=== PATIENT | male | born 1980 | race Caucasian/White ===

== ENCOUNTER 2017-03-31 19:14 | Emergency (ER) | payer OTHER ==
[~2017-03-31] VITALS: Ht 190.5 cm; Wt 59.0 kg
[~2017-03-31 19:14] MED LIST: DILANTIN100 MG PO
[2017-03-31] MEDS ORDERED: ATIVAN1 MG PO (23:56)
== END 2017-04-01 00:35 | disposition home or self-care (01) ==
LOC: ED 19:14
DX: F10.239 Alcohol dependence with withdrawal, unspecified (principal); G40.909 Epilepsy, unspecified, not intractable, without status epilepticus; R00.0 Tachycardia, unspecified; F17.200 Nicotine dependence, unspecified, uncomplicated
CPT/HCPCS: 80053; 81001; 83690; 85025; 96365; 96375; 96376; 99284; G0480; J2060; J2405; J3411; J7030

== ENCOUNTER 2023-08-25 17:24 | Emergency (ER) | payer OTHER ==
[~2023-08-25] VITALS: Ht 190.5 cm; Wt 69.8 kg
[~2023-08-25 17:24] MED LIST changes: +ATIVAN1 MG PO
[2023-08-25 18:38] LABS: BASOPHILS 0.1 % (0-2); HEMATOCRIT 46.3 % (35.0-50.0); HEMOGLOBIN 15.5 g/dL (12.0-18.0); LYMPHOCYTES 2.8 % (24-44); MCH 32.5 (27-36); MCHC 33.5 g/dl (30-36); MCV 97.2 fl (81-99); MONOCYTES 9.2 % (0-12); NEUTROPHILS 87.9 % (39-80); PLATELET COUNT 229 K/uL (140-440); RBC 4.76 M/ul (4.3-5.7); RDW 12.9 (10.5-15.0)
[2023-08-25 19:03] LABS: ALBUMIN 4.1 g/dL (3.4-5.0); ALBUMIN/GLOBULIN RATIO 0.93 (1.1-2.4); ANION GAP 14.4 (7-21); BILIRUBIN, TOTAL 0.9 ng/dL (0.2-1.0); BUN/CREATININE RATIO 9.25 (6.0-28.6); CALCIUM 10.7 mg/dL (8.5-10.1); CREATININE, SERUM 1.08 mg/dL (0.70-1.30); MAGNESIUM 1.4 mg/dL (1.8-2.4); POTASSIUM 3.4 mmol/L (3.5-5.1); PROTEIN, TOTAL 8.5 g/dL (6.4-8.2)
[2023-08-25 21:08] LABS: BILIRUBIN, URINE NEGATIVE (negative); BLOOD/HGB, URINE NEGATIVE (Negative); KETONE, URINE SMALL (Negative); LEUK ESTERASE, URINE NEGATIVE (negative); NITRITE, URINE NEGATIVE (negative); PH, URINE 5.5 (5-7)
[2023-08-25 21:18] LABS: INFLUENZA B NAA NEGATIVE (NEGATIVE); RESPIRATORY SYNCYTIAL VIR NAA NEGATIVE (NEGATIVE)
[2023-08-25] MEDS ORDERED: CARAFATE1 GM PO (21:33)
[2023-08-25] MEDS ORDERED: PROMETHAZINE HC25 M1 PO (21:33)
[2023-08-25] MEDS ORDERED: PROTONIX20 MG PO (21:33)
[2023-08-25 21:44] LABS: AMPHETAMINES, URINE NEGATIVE (NEGATIVE); BARBITURATES, URINE NEGATIVE (NEGATIVE); BENZODIAZEPINE, URINE NEGATIVE (NEGATIVE); BUPRENORPHINE, URINE NEGATIVE (NEGATIVE); CANNABINOID, URINE POSITIVE (NEGATIVE); COCAINE, URINE NEGATIVE (NEGATIVE); ECSTASY, URINE NEGATIVE (NEGATIVE); FENTANYL, URINE NEGATIVE (NEGATIVE); METHADONE, URINE NEGATIVE (NEGATIVE); OPIATES, URINE POSITIVE (NEGATIVE); OXYCODONE, URINE NEGATIVE (NEGATIVE); PHENCYCLIDINE, URINE NEGATIVE (NEGATIVE)
[2023-08-25 22:08] VITALS: BP 126/79
== END 2023-08-25 22:10 | disposition home or self-care (01) ==
LOC: ED 17:24
PROVIDERS: Emergency Medicine; Family Medicine
DX: R11.15 Cyclical vomiting syndrome unrelated to migraine (principal); K21.9 Gastro-esophageal reflux disease without esophagitis; F17.200 Nicotine dependence, unspecified, uncomplicated; Z11.52 Encounter for screening for COVID-19; Z79.899 Other long term (current) drug therapy
CPT/HCPCS: 36415; 74177; 80053; 80307; 81003; 83690; 83735; 84484; 85025; 87502; 96375; 99284-25; A9270; C9113; J1170; J1790; J2270; J3475; Q9967; U0002

== ENCOUNTER 2023-09-05 11:26 | Emergency (ER) | payer OTHER ==
[~2023-09-05] VITALS: Ht 190.5 cm; Wt 70.0 kg
[~2023-09-05 11:26] MED LIST changes: +CARAFATE1 GM PO; +PROMETHAZINE HC25 M1 PO; +PROTONIX20 MG PO
--- OUTSIDE RECORDS SUMMARY | 2023-09-05 11:29 | XMS ---
PreManage Notification: SAJI MORALES Security Grants Administrator Events No recent Security Events currently on file CRITERIA MET - [facility] - 2 Visits in 30 Days CARE PROVIDERS -[facility]- Dentist: Cold Header [facility] PHONE: [phone] Lila has no Care Guidelines for this patient. EKaz VISIT COUNT (12 MO.) 2 [facility] TOTAL 2 NOTE: Visits indicate total known visits. ED/UCC VISIT TRACKING (12 MO.) 09/05/2023 11:[address] [facility] [place] TYPE: Emergency COMPLAINT: - SOB, FEVER, DIZZINESS 08/25/2023 17:[address] [facility] [place] TYPE: Emergency COMPLAINT: - COLD SYMPTOMS DIAGNOSES: - Cyclical vomiting syndrome unrelated to migraine - Encounter for screening for COVID-19 - Gastro-esophageal reflux disease without esophagitis - Nicotine dependence, unspecified, uncomplicated - Other director long term care (current) drug therapy - Vomiting, unspecified INPATIENT VISIT TRACKING (12 MO.) No inpatient visits to display in this time frame [id number]
[2023-09-05] MEDS ORDERED: KEPPRA500 MG (11:41)
[2023-09-05 11:57] LABS: BASOPHILS 0.1 % (0-2); EOSINOPHILS 0.3 % (0-6); HEMATOCRIT 39.7 % (35.0-50.0); MCH 32.2 (27-36); MCHC 35.3 g/dl (30-36); MCV 91.3 fl (81-99); MONOCYTES 1.9 % (0-12); NEUTROPHILS 90.7 % (39-80); PLATELET COUNT 333 K/uL (140-440); RBC 4.35 M/ul (4.3-5.7); RDW 13.7 (10.5-15.0)
[2023-09-05 12:11] LABS: ALBUMIN 1.9 g/dL (3.4-5.0); ALBUMIN/GLOBULIN RATIO 0.35 (1.1-2.4); ANION GAP 10.1 (7-21); BILIRUBIN, TOTAL 3.7 ng/dL (0.2-1.0); BUN/CREATININE RATIO 10.75 (6.0-28.6); CREATININE, SERUM 0.93 mg/dL (0.70-1.30); POTASSIUM 3.1 mmol/L (3.5-5.1); PROTEIN, TOTAL 7.4 g/dL (6.4-8.2)
[2023-09-05 12:21] LABS: LACTIC ACID, BLOOD 2.9 mmol/L (0.4-2.0)
[2023-09-05 12:35] LABS: INFLUENZA B NAA NEGATIVE (NEGATIVE); RESPIRATORY SYNCYTIAL VIR NAA NEGATIVE (NEGATIVE)
[2023-09-05 14:28] LABS: BILIRUBIN, URINE POSITIVE (negative); BLOOD/HGB, URINE NEGATIVE (Negative); KETONE, URINE NEGATIVE (Negative); LEUK ESTERASE, URINE NEGATIVE (negative); NITRITE, URINE NEGATIVE (negative); PH, URINE 7.5 (5-7)
[2023-09-05 20:07] VITALS: BP 120/74
== END 2023-09-05 20:09 | disposition short-term general hospital (02) ==
LOC: ED 11:26
PROVIDERS: Emergency Medicine
DX: J18.9 Pneumonia, unspecified organism (principal); J90 Pleural effusion, not elsewhere classified; K21.9 Gastro-esophageal reflux disease without esophagitis; G40.909 Epilepsy, unspecified, not intractable, without status epilepticus; F17.200 Nicotine dependence, unspecified, uncomplicated; Z79.899 Other long term (current) drug therapy
CPT/HCPCS: 36415; 71045; 71260; 80053; 81003; 83605; 85025; 85060; 87040; 87502; 96361; 96366; 96367; 96375; 99285-25; J0692; J1170; J3370; J7060; J7121; Q9967; U0002

== ENCOUNTER 2023-12-17 08:01 | Emergency (ER) | payer OTHER ==
[~2023-12-17] VITALS: Ht 190.5 cm; Wt 72.0 kg
--- OUTSIDE RECORDS SUMMARY | ~2023-12-17 | XMS | Continuity of Care Document ---
Demographics + + + | Address | [address] | | | [place] [address] | + + + | Preferred Language | Unknown | + + + | Marital Status | Unknown | + + + | Scientology Affiliation | Unknown | + + + | Race | White | + + + | Ethnic Group | Not or | + + + Author + + + | Author | [facility] | + + + | Organization | [facility] | + + + | Address | [address] | | | [place] [address] | + + + | Phone | | + + + Care Team Providers + + + + | Care Computer Numerical Control Operator Name | Role | Phone | + [...]
[~2023-12-17 08:01] MED LIST changes: +KEPPRA500 MG
[2023-12-17] MEDS ORDERED: ONDANSETRON 4 MG TAB ODT SL ONE (08:45)
[2023-12-17 09:13] LABS: BASOPHILS 0.8 % (0-2); EOSINOPHILS 0.9 % (0-6); HEMATOCRIT 48.1 % (35.0-50.0); HEMOGLOBIN 16.5 g/dL (12.0-18.0); LYMPHOCYTES 23.9 % (24-44); MCH 32.6 (27-36); MCHC 34.3 g/dl (30-36); MCV 94.9 fl (81-99); MONOCYTES 8.1 % (0-12); NEUTROPHILS 66.3 % (39-80); PLATELET COUNT 208 K/uL (140-440); RBC 5.07 M/ul (4.3-5.7); RDW 13.3 (10.5-15.0)
[2023-12-17 09:27] LABS: ALBUMIN 4.7 g/dL (3.4-5.0); ALBUMIN/GLOBULIN RATIO 1.09 (1.1-2.4); ANION GAP 17.5 (7-21); BILIRUBIN, TOTAL 0.7 ng/dL (0.2-1.0); BUN/CREATININE RATIO 3.96 (6.0-28.6); CREATININE, SERUM 1.01 mg/dL (0.70-1.30); POTASSIUM 3.5 mmol/L (3.5-5.1)
[2023-12-17] MEDS ORDERED: ondansetron HCL 4 MG/2 ML VIAL IV ONE (10:30)
[2023-12-17] MEDS ORDERED: ONDANSETRON ODT4 MG PO (11:49)
[2023-12-17] MEDS ORDERED: DIFLUCAN200 MG PO (11:56)
[2023-12-17 12:09] VITALS: BP 128/77
== END 2023-12-17 12:04 | disposition home or self-care (01) ==
LOC: ED 08:01
PROVIDERS: Emergency Medicine
DX: R11.2 Nausea with vomiting, unspecified (principal); B35.4 Tinea corporis; F17.200 Nicotine dependence, unspecified, uncomplicated; Z79.899 Other long term (current) drug therapy
CPT/HCPCS: 36415; 71046; 80053; 83690; 85025; A9270; G0480; J2405

== ENCOUNTER 2023-12-20 07:10 | Emergency (ER) | payer OTHER ==
[~2023-12-20] VITALS: Ht 188 cm; Wt 71.4 kg
--- OUTSIDE RECORDS SUMMARY | ~2023-12-20 | XMS | Continuity of Care Document ---
Demographics + + + | Address | [address] | | | [place] [address] | + + + | Preferred Language | Unknown | + + + | Marital Status | Unknown | + + + | Uatsdin Affiliation | Unknown | + + + | Race | White | + + + | Ethnic Group | Not or | + + + Author + + + | Author | [facility] | + + + | Organization | [facility] | + + + | Address | [address] | | | [place] [address] | + + + | Phone | | + + + Care Team Providers + + + + | Care Telephone Sterilizer Name | Role | Phone | + + + + Unavailable | Unavailable | + + + + Allergies No information. Encounters No information. Functional Status No information. Immunizations No information. Medications No information. Problems + + + + | date | description | facility | + + + + | 2023-10-02 14:11:37 | Sepsis, unspecified | [facility] | | | organism | | + + + + | 2023-10-02 14:11:37 | Gangrene and necrosis of | [facility] | | | lung | | + + + + | 2023-10-02 14:11:37 | Pyothorax without fistula | [facility] | + + + + | 2023-10-02 14:11:37 | Acute respiratory failure | [facility] | | | with hypoxia | | + + + + | 2023-10-02 14:11:37 | Severe sepsis without | [facility] | | | septic shock | | + + + + | 2023-10-02 14:38:26 | Sepsis, unspecified | [facility] | | | organism | | + + + + | 2023-10-02 14:38:26 | Gangrene and necrosis of | [facility] | | | lung | | + + + + | 2023-10-02 14:38:26 | Pyothorax without fistula | [facility] | + + + + | 2023-10-02 14:38:26 | Acute respiratory failure | [facility] | | | with hypoxia | | + + + + | 2023-10-02 14:38:26 | Severe sepsis without | [facility] | | | septic shock | | + + + + Procedures No information. Results/Labs No information. Social History +--------+ + + | date | description | facility | +--------+ + + Vital Signs No information."
[~2023-12-20 07:10] MED LIST changes: +DIFLUCAN200 MG PO; +ONDANSETRON ODT4 MG PO
--- OUTSIDE RECORDS SUMMARY | 2023-12-20 07:12 | XMS ---
PreManage Notification: SAJI MORALES Security Supervisor Train Operations Events No recent Security Events currently on file CRITERIA MET - 6 ED Visits in 6 Months - [facility] - 2 Visits in 30 Days CARE PROVIDERS -Chivo- Dentist: Investment Broker [facility] PHONE: [phone] FLORENCIO OSULLIVAN Internal Medicine: Infectious Disease [facility] PHONE: [phone] Lila has no Care Guidelines for this patient. Jimmy VISIT COUNT (12 MO.) [address] [place] [address] TOTAL 6 NOTE: Visits indicate total known visits. ED/UCC VISIT TRACKING (12 MO.) 12/20/2023 07:11 [facility] [place] TYPE: Emergency COMPLAINT: - VOMTING 12/17/2023 08:02 [facility] [place] TYPE: Emergency COMPLAINT: - FEVER, VOMITING, SKIN ISSUE DIAGNOSES: - Nausea with vomiting, unspecified - Nicotine dependence, unspecified, uncomplicated - Other intermission coordinator (current) drug therapy - Tinea corporis - Vomiting, unspecified 11/14/2023 14:03 [facility] [place] [facility] [place]: Emergency COMPLAINT: - FACIAL WOUND 10/29/2023 10:14 [facility] [place] TYPE: Emergency COMPLAINT: - WEAKNESS DIAGNOSES: - Abscess of lung with pneumonia - Gastro-esophageal reflux disease without esophagitis - Nicotine dependence, unspecified, uncomplicated - Other fatigue - Other custodial (current) drug therapy - Weakness 09/05/2023 11:27 [facility] [place] TYPE: Emergency COMPLAINT: - SOB, FEVER, DIZZINESS DIAGNOSES: - Epilepsy, unspecified, not intractable, without status epilepticus - Gastro-esophageal reflux disease without esophagitis - Nicotine dependence, unspecified, uncomplicated - Other custodial (current) drug therapy - Pleural effusion, not elsewhere classified - Pneumonia, unspecified organism - Shortness of breath 08/25/2023 17:25 [facility] [place] TYPE: Emergency COMPLAINT: - COLD SYMPTOMS DIAGNOSES: - Cyclical vomiting syndrome unrelated to migraine - Encounter for screening for COVID-19 - Gastro-esophageal reflux disease without esophagitis - Nicotine dependence, unspecified, uncomplicated - Other custodial (current) drug therapy - Vomiting, unspecified INPATIENT VISIT TRACKING (12 MO.) 09/05/2023 23:28 [facility] TYPE: General Medicine COMPLAINT: - Pneumonia DIAGNOSES: - Acute respiratory failure with hypoxia - Gangrene and necrosis of lung - Pleural effusion, not elsewhere classified - Pneumonia, unspecified organism - Pyothorax without fistula - Sepsis, unspecified organism - Severe sepsis without septic shock [id number]
[2023-12-20] MEDS ORDERED: LORazepam 2 MG/ML VIAL IV PRN (07:30)
[2023-12-20] MEDS ORDERED: SODIUM CHLORIDE 0.9% 1,000 ML IV ONE (07:30)
[2023-12-20] MEDS ORDERED: PANTOPRAZOLE SODIUM 40 MG/10 ML VIAL IV ONE (07:30)
[2023-12-20] MEDS ORDERED: ondansetron HCL 4 MG/2 ML VIAL IV ONE (07:30)
[2023-12-20 08:01] LABS: BASOPHILS 0.3 % (0-2); EOSINOPHILS 0.1 % (0-6); HEMATOCRIT 49.4 % (35.0-50.0); HEMOGLOBIN 16.7 g/dL (12.0-18.0); MCH 32.2 (27-36); MCHC 33.7 g/dl (30-36); MCV 95.6 fl (81-99); MONOCYTES 3.8 % (0-12); NEUTROPHILS 87.8 % (39-80); PLATELET COUNT 194 K/uL (140-440); RBC 5.17 M/ul (4.3-5.7); RDW 13.3 (10.5-15.0)
[2023-12-20] MEDS ORDERED: MULTIVITAMINS 10 ML,FOLIC ACID 1 MG,THIAMINE HCL 100 MG in SODIUM CHLORIDE 0.9% 1,000 ML IV SCH (08:15)
[2023-12-20 08:21] LABS: ALBUMIN 4.8 g/dL (3.4-5.0); ALBUMIN/GLOBULIN RATIO 1.07 (1.1-2.4); ANION GAP 18.8 (7-21); BILIRUBIN, TOTAL 0.5 ng/dL (0.2-1.0); BUN/CREATININE RATIO 7.14 (6.0-28.6); CALCIUM 10.2 mg/dL (8.5-10.1); CREATININE, SERUM 0.98 mg/dL (0.70-1.30); POTASSIUM 3.8 mmol/L (3.5-5.1); PROTEIN, TOTAL 9.3 g/dL (6.4-8.2)
[2023-12-20] MEDS ORDERED: FOLIC ACID 1 MG/0.2 ML ML ONE (08:21)
[2023-12-20] MEDS ORDERED: PROMETHAZINE HC25 M1 PO (08:54)
[2023-12-20] MEDS ORDERED: CHLORDIAZEPOXID25 MG PO (08:54)
[2023-12-20] MEDS ORDERED: OMEPRAZOLE20 MG PO (08:54)
[2023-12-20] MEDS ORDERED: ONDANSETRON ODT8 MG PO (09:06)
[2023-12-20 11:08] VITALS: BP 111/73
== END 2023-12-20 11:08 | disposition home or self-care (01) ==
LOC: ED 07:10
PROVIDERS: Emergency Medicine
DX: K29.20 Alcoholic gastritis without bleeding (principal); F17.200 Nicotine dependence, unspecified, uncomplicated; Z79.899 Other long term (current) drug therapy
CPT/HCPCS: 36415; 80053; 83690; 85025; 96361; 96365; 96366; 96375; 96376; 99284-25; C9113; G0480; J2060; J2405; J3411; J7030

== ENCOUNTER 2025-03-22 16:53 | Emergency (ER) | payer OTHER ==
[~2025-03-22] VITALS: Ht 188 cm; Wt 71.8 kg
[~2025-03-22 16:53] MED LIST changes: +CHLORDIAZEPOXID25 MG PO; +OMEPRAZOLE20 MG PO; +ONDANSETRON ODT8 MG PO
--- OUTSIDE RECORDS SUMMARY | 2025-03-22 17:00 | XMS ---
PreManage Notification: SAJI MORALES Security Box Printer Events No recent Security Events currently on file CRITERIA MET - Group Notification CARE PROVIDERS -, [facility] Dentist: Build Master Current [place] PHONE: [phone] Lila has no Care Guidelines for this patient. EKaz VISIT COUNT (12 MO.) 2 [facility] TOTAL 2 NOTE: Visits indicate total known visits. ED/UCC VISIT TRACKING (12 MO.) 03/22/2025 16:54 [facility] [place] TYPE: Emergency COMPLAINT: - VOMITING 10/31/2024 14:39 [facility] [place] TYPE: Emergency COMPLAINT: - SEIZURE LIKE FEELING INPATIENT VISIT TRACKING (12 MO.) No inpatient visits to display in this time frame [id number]
[2025-03-22] MEDS ORDERED: SODIUM CHLORIDE 0.9% 500 ML IV ONE (20:15)
[2025-03-22 20:17] LABS: BASOPHILS 0.3 % (0.2-1.2); EOSINOPHILS 0 % (0.8-7.0); LYMPHOCYTES 6.8 % (21.8-53.1); MCH 32.6 PG (25.7-32.2); MCHC 33.4 g/dL (32.3-36.5); MCV 97.6 fL (79.0-92.2); MONOCYTES 6.9 % (5.3-12.2); NEUTROPHILS 85.7 % (34.0-67.9); RBC 4.66 M/uL (4.63-6.08)
[2025-03-22 20:32] LABS: ALT (SGPT) 226.0 U/L (14-59); AST (SGOT) 224.0 U/L (15-37); GLOMERULAR FILTRATION RATE,EST 79.0 mL/min (>60); PROTEIN, TOTAL 9.6 g/dL (6.4-8.2); UREA NITROGEN 10.0 mg/dL (7-18)
[2025-03-22] MEDS ORDERED: LORazepam 2 MG/ML VIAL IV ONE (21:30)
[2025-03-22] MEDS ORDERED: LACTATED RINGER'S 1,000 ML IV ONE (21:30)
[2025-03-22] MEDS ORDERED: FAMOTIDINE 20 MG/ 2 ML VIAL IV ONE (21:30)
[2025-03-22 21:39] LABS: ALCOHOL, MEDICAL <3 ng/dL (<3)
[2025-03-22 21:46] LABS: BLOOD/HGB, URINE NEGATIVE (Negative); KETONE, URINE >=80 (Negative); LEUK ESTERASE, URINE NEGATIVE (negative); NITRITE, URINE NEGATIVE (negative)
[2025-03-22 21:51] LABS: EPITHELIAL CELLS, URINE SQUAMOUS 1+ /lpf (0-1+)
[2025-03-22 21:53] LABS: CRYSTALS, URINE NONE SEEN (0-1+)
[2025-03-22 21:54] LABS: BACTERIA, URINE RARE /hpf (negative); CASTS, URINE NONE SEEN \\lpf; REFLEX CULTURE, URINE No (No)
[2025-03-22 22:01] LABS: AMPHETAMINES, URINE NEGATIVE (NEGATIVE); BARBITURATES, URINE NEGATIVE (NEGATIVE); BENZODIAZEPINE, URINE NEGATIVE (NEGATIVE); CANNABINOID, URINE POSITIVE (NEGATIVE); COCAINE, URINE NEGATIVE (NEGATIVE); ECSTASY, URINE NEGATIVE (NEGATIVE); FENTANYL, URINE NEGATIVE (NEGATIVE); METHADONE, URINE NEGATIVE (NEGATIVE); OPIATES, URINE NEGATIVE (NEGATIVE); OXYCODONE, URINE NEGATIVE (NEGATIVE); PHENCYCLIDINE, URINE NEGATIVE (NEGATIVE)
[2025-03-23] MEDS ORDERED: CHLORDIAZEPOXIDE 25 MG CAP PO ONE (01:00)
[2025-03-23] MEDS ORDERED: CHLORDIAZEPOXID25 MG PO (01:13)
[2025-03-23] MEDS ORDERED: ONDANSETRON ODT4 MG PO (01:16)
[2025-03-23 01:28] VITALS: BP 130/79
== END 2025-03-23 01:31 | disposition home or self-care (01) ==
LOC: ED 16:53
PROVIDERS: Internal Medicine
DX: F10.90 Alcohol use, unspecified, uncomplicated (principal); K21.9 Gastro-esophageal reflux disease without esophagitis; F17.200 Nicotine dependence, unspecified, uncomplicated; Z79.899 Other long term (current) drug therapy
CPT/HCPCS: 36415; 71045; 80053; 80307; 81001; 83690; 83735; 85025; 96361; 96374; 96375; 96376; 99284-25; G0480; J2060; J2405; J7040; J7121

== ENCOUNTER 2025-05-06 11:39 | Emergency (ER) | payer OTHER ==
[~2025-05-06] VITALS: Ht 188 cm; Wt 72.4 kg
--- OUTSIDE RECORDS SUMMARY | 2025-05-06 11:45 | XMS ---
PreManage Notification: SAJI MORALES Security Structural Steel Equipment Erector Events No recent Security Events currently on file CRITERIA MET - Group Notification CARE PROVIDERS -, [facility] Dentist: Creative Guru Current [place] PHONE: [phone] Lila has no Care Guidelines for this patient. EKaz VISIT COUNT (12 MO.) 3 [facility] TOTAL 3 NOTE: Visits indicate total known visits. ED/UCC VISIT TRACKING (12 MO.) 05/06/2025 11:39 [facility] [place] TYPE: Emergency COMPLAINT: - VOMITING 03/22/2025 16:54 [facility] [place] TYPE: Emergency COMPLAINT: - VOMITING DIAGNOSES: - Alcohol use, unspecified, uncomplicated - Gastro-esophageal reflux disease without esophagitis - Nausea with vomiting, unspecified - Nicotine dependence, unspecified, uncomplicated - Other mcc (current) drug therapy 10/31/2024 14:39 [facility] [place] TYPE: Emergency COMPLAINT: - SEIZURE LIKE FEELING INPATIENT VISIT TRACKING (12 MO.) No inpatient visits to display in this time frame [id number]
[2025-05-06] MEDS ORDERED: SODIUM CHLORIDE 0.9% 1,000 ML IV ONE (13:00)
[2025-05-06] MEDS ORDERED: LORazepam 2 MG/ML VIAL IV ONE (13:30)
[2025-05-06 14:30] LABS: BASOPHILS 0.2 % (0.2-1.2); EOSINOPHILS 0.2 % (0.8-7.0); LYMPHOCYTES 13.3 % (21.8-53.1); MCH 32.8 PG (25.7-32.2); MCHC 34.5 g/dL (32.3-36.5); MCV 95.1 fL (79.0-92.2); MONOCYTES 8.7 % (5.3-12.2); NEUTROPHILS 77.4 % (34.0-67.9); RBC 4.51 M/uL (4.63-6.08)
[2025-05-06 14:43] LABS: ALT (SGPT) 69.0 U/L (14-59); AST (SGOT) 79.0 U/L (15-37); GLOMERULAR FILTRATION RATE,EST 106.0 mL/min (>60); PROTEIN, TOTAL 8.8 g/dL (6.4-8.2); UREA NITROGEN 4.0 mg/dL (7-18)
[2025-05-06] MEDS ORDERED: LORazepam 1 MG TAB PO ONE (15:45)
[2025-05-06] MEDS ORDERED: ONDANSETRON 4 MG HOME.PACK SL ONE (15:45)
[2025-05-06 15:52] VITALS: BP 126/90
== END 2025-05-06 16:00 | disposition home or self-care (01) ==
LOC: ED 11:39
PROVIDERS: Emergency Medicine
DX: F10.239 Alcohol dependence with withdrawal, unspecified (principal); K29.20 Alcoholic gastritis without bleeding; K21.9 Gastro-esophageal reflux disease without esophagitis; F17.200 Nicotine dependence, unspecified, uncomplicated; Z79.899 Other long term (current) drug therapy
CPT/HCPCS: 36415; 80053; 83690; 85025; 96361; 96374; 96375; 99284-25; A9270; A9270-GY; J2060; J2405; J7030

== ENCOUNTER 2025-05-30 22:30 | Emergency (ER) | payer OTHER ==
[~2025-05-30] VITALS: Ht 188 cm; Wt 68.0 kg
--- OUTSIDE RECORDS SUMMARY | 2025-05-30 22:33 | XMS ---
PreManage Notification: SAJI MORALES Security Nuclear Medicine Physician Events No recent Security Events currently on file CRITERIA MET - Group Notification - [facility] - 2 Visits in 30 Days CARE PROVIDERS -, [facility] Dentist: Photo Studio Assistant Current [employer] PHONE: [phone] [facility]: Multi-Specialty Current FAMILY PHONE: Unknown Lila has no Care Guidelines for this patient. E.DAshley VISIT COUNT (12 MO.) [address] [place] [address] TOTAL 4 NOTE: Visits indicate total known visits. ED/UCC VISIT TRACKING (12 MO.) 05/30/2025 22:[address] [facility] [facility] [place] TYPE: Emergency COMPLAINT: - DIFFICULTY BREATHING 05/06/2025 11:39 [facility] [place] TYPE: Emergency COMPLAINT: - VOMITING DIAGNOSES: - Alcohol dependence with withdrawal, unspecified - Alcoholic gastritis without bleeding - Gastro-esophageal reflux disease without esophagitis - Nausea with vomiting, unspecified - Nicotine dependence, unspecified, uncomplicated - Other skilled nursing (current) drug therapy 03/22/2025 16:54 [facility] [place] TYPE: Emergency COMPLAINT: - VOMITING DIAGNOSES: - Alcohol use, unspecified, uncomplicated - Gastro-esophageal reflux disease without esophagitis - Nausea with vomiting, unspecified - Nicotine dependence, unspecified, uncomplicated - Other skilled nursing (current) drug therapy 10/31/2024 14:39 [facility] [place] TYPE: Emergency COMPLAINT: - SEIZURE LIKE FEELING INPATIENT VISIT TRACKING (12 MO.) No inpatient visits to display in this time frame [id number]
[2025-05-30] MEDS ORDERED: THIAMINE HCL 200 MG/2 ML VIAL IV ONE (22:45)
[2025-05-30] MEDS ORDERED: SODIUM CHLORIDE 0.9% 1,000 ML IV ONE (22:45)
[2025-05-30] MEDS ORDERED: ALBUTEROL/IPRATROPIUM 3 ML NEB ONE (22:46)
[2025-05-30 22:56] LABS: BASOPHILS 0.6 % (0.2-1.2); EOSINOPHILS 0.1 % (0.8-7.0); LYMPHOCYTES 15.8 % (21.8-53.1); MCH 34.0 PG (25.7-32.2); MCHC 33.9 g/dL (32.3-36.5); MCV 100.2 fL (79.0-92.2); MONOCYTES 5.3 % (5.3-12.2); NEUTROPHILS 78.1 % (34.0-67.9); RBC 4.24 M/uL (4.63-6.08)
[2025-05-30] MEDS ORDERED: ALBUTEROL/IPRATROPIUM 3 ML NEB INH ONE (23:00)
[2025-05-30] MEDS ORDERED: FAMOTIDINE 20 MG/ 2 ML VIAL IV ONE (23:00)
[2025-05-30] MEDS ORDERED: LORazepam 2 MG/ML VIAL IV ONE (23:00)
[2025-05-30 23:17] LABS: ALT (SGPT) 100.0 U/L (14-59); AST (SGOT) 113.0 U/L (15-37); GLOMERULAR FILTRATION RATE,EST 113.0 mL/min (>60); PROTEIN, TOTAL 8.6 g/dL (6.4-8.2); UREA NITROGEN 5.0 mg/dL (7-18)
[2025-05-30 23:22] LABS: INR 0.94 (0.80-1.30); PROTIME 12.2 Sec (11.2-14.2)
[2025-05-30 23:37] LABS: LACTIC ACID, BLOOD 5.0 mmol/L (0.4-2.0)
[2025-05-30] MEDS ORDERED: PANTOPRAZOLE SODIUM 40 MG/10 ML VIAL IV ONE (23:45)
[2025-05-30] MEDS ORDERED: LACTATED RINGER'S 1,000 ML IV ONE (23:45)
[2025-05-31 02:16] LABS: GLOMERULAR FILTRATION RATE,EST 120.0 mL/min (>60); UREA NITROGEN 4.0 mg/dL (7-18)
[2025-05-31 02:28] LABS: BLOOD/HGB, URINE NEGATIVE (Negative); KETONE, URINE SMALL (Negative); LEUK ESTERASE, URINE NEGATIVE (negative); NITRITE, URINE NEGATIVE (negative)
[2025-05-31 02:41] LABS: BACTERIA, URINE RARE /hpf (negative); CASTS, URINE HYALINE 3+ \\lpf; CRYSTALS, URINE NONE SEEN (0-1+); EPITHELIAL CELLS, URINE NONE SEEN /lpf (0-1+); REFLEX CULTURE, URINE No (No)
[2025-05-31 02:42] LABS: AMPHETAMINES, URINE NEGATIVE (NEGATIVE); BARBITURATES, URINE NEGATIVE (NEGATIVE); BENZODIAZEPINE, URINE POSITIVE (NEGATIVE); CANNABINOID, URINE POSITIVE (NEGATIVE); COCAINE, URINE NEGATIVE (NEGATIVE); ECSTASY, URINE NEGATIVE (NEGATIVE); FENTANYL, URINE NEGATIVE (NEGATIVE); METHADONE, URINE NEGATIVE (NEGATIVE); OPIATES, URINE NEGATIVE (NEGATIVE); OXYCODONE, URINE NEGATIVE (NEGATIVE); PHENCYCLIDINE, URINE NEGATIVE (NEGATIVE)
[2025-05-31] MEDS ORDERED: LACTATED RINGER'S 1,000 ML IV ONE ×2 (03:00→03:15)
[2025-05-31 06:42] LABS: LACTIC ACID, BLOOD 2.1 mmol/L (0.4-2.0)
[2025-05-31 08:21] VITALS: BP 102/51
--- NOTE | 2025-06-02 07:37 | EKG ---
[facility] [address] [place], [place] [address] Signed Sinus tachycardia Otherwise normal ECG When compared with ECG of 29-OCT-2023 11:06, No significant change was found Confirmed by Luke Rivero DO ([id number]) on 06/02/2025 7:36:49 AM Electronically Signed By: LUKE RIVERO DO 06/02/25 0737 PATIENT NAME: SAJI MORALES ALEX Electrocardiogram DATE OF : 82 PHYSICIAN: LUKE RIVERO DO REPORT #: [id number] REPORT IS CONFIDENTIAL AND NOT TO BE RELEASED WITHOUT AUTHORIZATION
--- NOTE | 2025-06-07 21:32 | EKG ---
[facility] [address] [place], [place] [address] Signed Sinus tachycardia Minimal voltage criteria for LVH, may be normal variant ( Sokolow-Dixon ) Borderline ECG When compared with ECG of 30-MAY-2025 22:54, No significant change was found Confirmed by Fred Ngo MD () on 06/07/2025 9:32:11 PM Electronically Signed By: FRED NGO MD 06/07/25 2132 PATIENT NAME: NIEVESNEYDASAJI ALEX Electrocardiogram DATE OF : 82 PHYSICIAN: FRED NGO MD REPORT #: [id number] REPORT IS CONFIDENTIAL AND NOT TO BE RELEASED WITHOUT AUTHORIZATION
== END 2025-05-31 08:15 | disposition home or self-care (01) ==
LOC: ED 22:30
PROVIDERS: Internal Medicine
DX: E87.29 Other acidosis (principal); E86.0 Dehydration; F17.200 Nicotine dependence, unspecified, uncomplicated
CPT/HCPCS: 36415; 71045; 71260; 80048; 80053; 80307; 81001; 83605; 83690; 83880; 85025; 85379; 85610; 85730; 87040; 87077; 87186; 93005; 93010; 94640; 96361; 96365; 96375; 99285; G0480; J0696; J2060; J2405; J2470; J3411; J7030; J7121; Q9967

== ENCOUNTER 2025-06-06 08:28 | Emergency (ER) | payer OTHER ==
[~2025-06-06] VITALS: Ht 188 cm; Wt 69.0 kg
--- OUTSIDE RECORDS SUMMARY | 2025-06-06 08:29 | XMS ---
PreManage Notification: SAJI MORALES Security Tagman Events No recent Security Events currently on file CRITERIA MET - Group Notification - [facility] - 2 Visits in 30 Days CARE PROVIDERS -, [facility] Dentist: Principal System Software Engineer Current [place] PHONE: [phone] [facility]: Multi-Specialty Current FAMILY PHONE: Unknown Lila has no Care Guidelines for this patient. E.DAshley VISIT COUNT (12 MO.) [address] [place] [address] TOTAL 5 NOTE: Visits indicate total known visits. ED/UCC VISIT TRACKING (12 MO.) 06/06/2025 08:28 [facility] [place] TYPE: Emergency COMPLAINT: - CHEST PAIN 05/30/2025 22:31 [facility] [place] TYPE: Emergency COMPLAINT: - DIFFICULTY BREATHING DIAGNOSES: - Dehydration - Nicotine dependence, unspecified, uncomplicated - Other acidosis - Pleurodynia 05/06/2025 11:39 [facility] [place] TYPE: Emergency COMPLAINT: - VOMITING DIAGNOSES: - Alcohol dependence with withdrawal, unspecified - Alcoholic gastritis without bleeding - Gastro-esophageal reflux disease without esophagitis - Nausea with vomiting, unspecified - Nicotine dependence, unspecified, uncomplicated - Other intermodal owner operator truck driver (current) drug therapy 03/22/2025 16:54 [facility] [place] TYPE: Emergency COMPLAINT: - VOMITING DIAGNOSES: - Alcohol use, unspecified, uncomplicated - Gastro-esophageal reflux disease without esophagitis - Nausea with vomiting, unspecified - Nicotine dependence, unspecified, uncomplicated - Other intermodal owner operator truck driver (current) drug therapy 10/31/2024 14:39 [facility] [place] TYPE: Emergency COMPLAINT: - SEIZURE LIKE FEELING INPATIENT VISIT TRACKING (12 MO.) No inpatient visits to display in this time frame [email or web address]
[2025-06-06] MEDS ORDERED: ASPIRIN 81 MG CHEW PO ONE (08:45)
[2025-06-06] MEDS ORDERED: SODIUM CHLORIDE 0.9% 1,000 ML IV PRN (09:00)
[2025-06-06] MEDS ORDERED: FAMOTIDINE 20 MG/ 2 ML VIAL IV ONE (09:00)
[2025-06-06 09:01] LABS: BASOPHILS 0.8 % (0.2-1.2); EOSINOPHILS 1.0 % (0.8-7.0); LYMPHOCYTES 26.7 % (21.8-53.1); MCH 33.9 PG (25.7-32.2); MCHC 33.9 g/dL (32.3-36.5); MCV 100.0 fL (79.0-92.2); MONOCYTES 11.1 % (5.3-12.2); NEUTROPHILS 60.1 % (34.0-67.9); RBC 3.92 M/uL (4.63-6.08)
[2025-06-06 09:20] LABS: ALT (SGPT) 206 U/L (14-59); AST (SGOT) 251 U/L (15-37); GLOMERULAR FILTRATION RATE,EST 111 mL/min (>60); PROTEIN, TOTAL 7.8 g/dL (6.4-8.2); UREA NITROGEN 8 mg/dL (7-18)
[2025-06-06] MEDS ORDERED: PEPCID20 MG PO (10:01)
[2025-06-06] MEDS ORDERED: ONDANSETRON ODT4 MG PO (10:01)
[2025-06-06 10:15] VITALS: BP 116/84
== END 2025-06-06 10:12 | disposition home or self-care (01) ==
LOC: ED 08:28
PROVIDERS: Emergency Medicine
DX: K29.20 Alcoholic gastritis without bleeding (principal); K21.9 Gastro-esophageal reflux disease without esophagitis; F17.200 Nicotine dependence, unspecified, uncomplicated; Z79.899 Other long term (current) drug therapy
CPT/HCPCS: 36415; 71045; 80053; 83735; 84484; 85025; 93005; 93010; 96361; 96374; 96375; 99284-25; J2405; J7030

== ENCOUNTER 2025-06-06 19:20 | Emergency (ER) | payer OTHER ==
[~2025-06-06] VITALS: Ht 188 cm; Wt 69.0 kg
[~2025-06-06 19:20] MED LIST changes: +PEPCID20 MG PO
--- OUTSIDE RECORDS SUMMARY | 2025-06-06 19:23 | XMS ---
PreManage Notification: SAJI MORALES Security Cellar Worker Events No recent Security Events currently on file CRITERIA MET - Group Notification - [facility] - 2 Visits in 30 Days CARE PROVIDERS -, [facility] Dentist: Medical Transcription Editor Current [employer] PHONE: [phone] [facility]: Multi-Specialty Current FAMILY PHONE: Unknown Lila has no Care Guidelines for this patient. E.DAshley VISIT COUNT (12 MO.) [address] [facility] TOTAL 6 NOTE: Visits indicate total known visits. ED/UCC VISIT TRACKING (12 MO.) 06/06/2025 19:20 [facility] [place] TYPE: Emergency COMPLAINT: - DIFFICULTY BREATHING 06/06/2025 08:28 [facility] [place] TYPE: Emergency COMPLAINT: - CHEST PAIN 05/30/2025 22:31 [facility] [place] TYPE: Emergency COMPLAINT: - DIFFICULTY BREATHING DIAGNOSES: - Dehydration - Nicotine dependence, unspecified, uncomplicated - Other acidosis - Pleurodynia 05/06/2025 11:39 [facility] [place] TYPE: Emergency COMPLAINT: - VOMITING DIAGNOSES: - Alcohol dependence with withdrawal, unspecified - Alcoholic gastritis without bleeding - Gastro-esophageal reflux disease without esophagitis - Nausea with vomiting, unspecified - Nicotine dependence, unspecified, uncomplicated - Other termite treater helper (current) drug therapy 03/22/2025 16:54 [facility] [...] visits to display in this time frame [id number]
[2025-06-06] MEDS ORDERED: ALBUTEROL/IPRATROPIUM 3 ML NEB INH ONE (20:00)
[2025-06-06 20:48] LABS: CORONAVIRUS COVID-19 AG NEGATIVE (NEGATIVE)
[2025-06-06] MEDS ORDERED: hydrOXYzine pamoate 50 MG HOME.PACK PO ONE (21:30)
[2025-06-06] MEDS ORDERED: ALBUTEROL SULFATE 8 GM HOME.PACK INH ONE (21:30)
[2025-06-06 21:52] VITALS: BP 127/64
== END 2025-06-06 21:54 | disposition home or self-care (01) ==
LOC: ED 19:20
PROVIDERS: Family Medicine
DX: J06.9 Acute upper respiratory infection, unspecified (principal); F17.200 Nicotine dependence, unspecified, uncomplicated; K21.9 Gastro-esophageal reflux disease without esophagitis
CPT/HCPCS: 36415; 94640; 99283

== ENCOUNTER 2025-06-24 05:43 | Emergency (ER) | payer OTHER ==
[~2025-06-24] VITALS: Ht 188 cm; Wt 90.0 kg
--- OUTSIDE RECORDS SUMMARY | ~2025-06-24 | XMS | Continuity of Care Document ---
Demographics + + + | Address | [address] | | | [place] [address] | + + + | Preferred Language | Unknown | + + + | Marital Status | Never | + + + | Rastafari Affiliation | Unknown | + + + | Race | White | + + + | Ethnic Group | Not or | + + + Author + + + | Author | [facility] | + + + | Organization | [facility] | + + + | Address | [address] | | | [place] [address] | + + + | Phone | | + + + Care Team Providers + + + + | [employer] Service Supervisor Name | Role | Phone | + + + + Unavailable | Unavailable | + + + + Unavailable | Unavailable | + + + + Allergies No information. Encounters No information. Functional Status No information. Immunizations No information. Medications + + + + | date | description | facility | + + + + | 2025-06-06 00:00 | FAMOTIDINE | [facility] | | | | [facility] | + + + + | 2025-06-06 00:00 | ONDANSETRON | [facility] | | | | [facility] | + + + + | (no date) | LEVETIRACETAM | [facility] | | | | [facility] | + + + + Problems + + + + | date | description | facility | + + + + | 2025-05-06 00:00 | Alcohol withdrawal | [facility] | | | syndrome | [facility] | + + + + | 2025-05-31 00:00 | Dehydration | [facility] | | | | [facility] | + + + + | 2025-05-31 00:00 | Alcoholic ketoacidosis | [facility] | | | | [facility] | + + + + | 2025-06-06 00:00 | Upper respiratory tract | [facility] | | | infection | [facility] | + + + + Procedures [...] 0.81 | (missing) | (missing) | | [facility] | 22:47:08 | [facility] | | [...] 72 | (missing) | (missing) | | [facility] | 22:47:08 | [facility] | | | [...] 95 | (missing) | (missing) | | [facility] | 08:58:08 | [facility] | | | [...] 13.3 | (missing) | (missing) | | [facility] | 08:58:08 | [facility] | | [...]
--- OUTSIDE RECORDS SUMMARY | 2025-06-24 05:44 | XMS ---
PreManage Notification: SAJI MORALES Security Desk Operator Events No recent Security Events currently on file CRITERIA MET - 6 ED Visits in 6 Months - Group Notification - [facility] - 2 Visits in 30 Days CARE PROVIDERS -, [facility] Dentist: Ignition Mechanic Current [place] PHONE: [phone] [facility]: Multi-Specialty Current FAMILY PHONE: Unknown Lila has no Care Guidelines for this patient. EKaz VISIT COUNT (12 MO.) [address] [place] [address] TOTAL 7 NOTE: Visits indicate total known visits. ED/UCC VISIT TRACKING (12 MO.) 06/24/2025 05:43 [facility] [place] TYPE: Emergency COMPLAINT: - NOSE BLEED 06/06/2025 19:20 [facility] [place] TYPE: Emergency COMPLAINT: - DIFFICULTY BREATHING DIAGNOSES: - Acute upper respiratory infection, unspecified - Allergic urticaria - Cough, unspecified - Gastro-esophageal reflux disease without esophagitis - Nicotine dependence, unspecified, uncomplicated 06/06/2025 08:[address] [facility] 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 [place] [facility] [place] TYPE: Emergency COMPLAINT: - DIFFICULTY BREATHING DIAGNOSES: - Dehydration - Nicotine dependence, unspecified, uncomplicated - Other acidosis - Pleurodynia 05/06/2025 11:[address] 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 [place] TYPE: Emergency COMPLAINT: - VOMITING DIAGNOSES: - Alcohol use, unspecified, uncomplicated - Gastro-esophageal reflux disease without esophagitis - Nausea with vomiting, unspecified - Nicotine dependence, unspecified, uncomplicated - Other marine oil terminal superintendent (current) drug therapy 10/31/2024 14:39 [facility] [place] TYPE: Emergency COMPLAINT: - SEIZURE LIKE FEELING INPATIENT VISIT TRACKING (12 MO.) No inpatient visits to display in this time frame [id number]
[2025-06-24] MEDS ORDERED: OXYMETAZOLINE HCL 30 ML BTL ONE (05:50)
[2025-06-24] MEDS ORDERED: AFRIN15 M1 NAS (05:55)
[2025-06-24 06:00] VITALS: BP 124/79
[2025-06-24] MEDS ORDERED: OXYMETAZOLINE HCL 30 ML BTL NAS ONE (06:00)
[2025-06-24] MEDS ORDERED: KEPPRA500 MG PO (22:47)
== END 2025-06-24 06:00 | disposition home or self-care (01) ==
LOC: ED 05:43
DX: R04.0 Epistaxis (principal); K21.9 Gastro-esophageal reflux disease without esophagitis; F17.200 Nicotine dependence, unspecified, uncomplicated; Z79.899 Other long term (current) drug therapy
CPT/HCPCS: 99283

== ENCOUNTER 2025-06-24 18:51 | Emergency (ER) | payer OTHER ==
[~2025-06-24] VITALS: Ht 188 cm; Wt 68.0 kg
--- OUTSIDE RECORDS SUMMARY | ~2025-06-24 | XMS | Continuity of Care Document ---
Demographics + + + | Address | [address] | | | [place] [address] | + + + | Preferred Language | Unknown | + + + | Marital Status | Never | + + + | Worship Affiliation | Unknown | + + + | Race | White | + + + | Ethnic Group | Not or | + + + Author + + + | Author | [facility] | + + + | Organization | [facility] | + + + | Address | [address] | | | [place] [address] | + + + | Phone | | + + + Care Team Providers + + + + | Care Weed Control Inspector Name | Role | Phone | + + + + Unavailable | Unavailable | + + + + Unavailable | Unavailable | + + + + Allergies No information. Encounters No information. Functional Status No information. Immunizations No information. Medications + + + + | date | description | facility | + + + + | 2025-06-06 00:00 | FAMOTIDINE | [facility] | | | | [facility] | + + + + | 2025-06-06 00:00 | ONDANSETRON | [facility] | | | | [facility] | + + + + | (no date) | LEVETIRACETAM | [facility] | | | | [facility] | + + + + Problems + + + + | date | description | facility | + + + + | 2025-05-06 00:00 | Alcohol withdrawal | [facility] | | | syndrome | [facility] | + + + + | 2025-05-31 00:00 | Dehydration | [facility] | | | | [facility] | + + + + | 2025-05-31 00:00 | Alcoholic ketoacidosis | [facility] | | | | [facility] | + + + + | 2025-06-06 00:00 | Upper respiratory tract | [facility] | | | infection | [facility] | + + + + Procedures No information. Results/Labs +--------+--------+ +---------+--------+---------+ | test | date | facility | value | unit | notes | +--------+--------+ +---------+--------+---------+ + + | Result panel 1 | + + + + + +--------+ + + | Prothrombin | 2025-05-30 | | 12.2 | (missing) | (missing) | | time | 22:47:08 | [facility] | | | | + + + +--------+ + + + + | Result panel 2 | + + + + + +--------+ + + | INR PPP | 2025-05-30 | | 0.94 | (missing) | (missing) | | | 22:47:08 | [facility] | | | | + + + +--------+ + + + + | Result panel 3 | + + + + + +--------+ + + | aPTT PPP | 2025-05-30 | | 23.7 | (missing) | (missing) | | | 22:47:08 | [facility] | | | | + + + +--------+ + + + + | Result panel 4 | + + + + + +--------+ + + | D Dimer PPP | 2025-05-30 | | 0.81 | (missing) | (missing) | | [facility] | 22:47:08 | [facility] | | | | + + + +--------+ + + + + | Result panel 5 | + + + + + +------+ + + | Lipase | 2025-05-30 | | 72 | (missing) | (missing) | | [facility] | 22:47:08 | [facility] | | | | + + + +------+ + + + + | Result panel 6 | + + + + + +-------+ + + | Ethanol | 2025-05-30 | | 310 | (missing) | (missing) | | SerPl-sCnc | 22:47:08 | [facility] | | | | + + + +-------+ + + + + | Result panel 7 | + + + + + + + + + | Bacteria | 2025-05-30 | | | (missing) | (missing) | | Bld Cult | 22:58:08 | [facility] | STAPHYLOCOCC | | | [facility] | | | | | [facility] EPIDERMIDIS | | | | | | [facility] | | | | + + + + + + + + + | Result panel 8 | + + + + + + + + + | Color Ur | 2025-05-31 | | YELLOW | (missing) | (missing) | | Auto | 02:20:08 | [facility] | | | | + + + + + + + + + | Result panel 9 | + + + + + +---------+ + + | Character | 2025-05-31 | | CLEAR | (missing) | (missing) | | Ur | 02:20:08 | [facility] | | | | + + + +---------+ + + + + | Result panel 10 | + + + + + + + + + | Glucose Ur | 2025-05-31 | | NEGATIVE | (missing) | (missing) | | Ql Strip | 02:20:08 | [facility] | | | | + + + + + + + + + | Result panel 11 | + + + + + + + + + | Bilirub Ur | 2025-05-31 | | NEGATIVE | (missing) | (missing) | | Ql Strip | 02:20:08 | [facility] | | | | + + + + + + + + + | Result panel 12 | + + + + + +---------+ + + | Ketones Ur | 2025-05-31 | | SMALL | (missing) | (missing) | | Ql Strip | 02:20:08 | [facility] | | | | + + + +---------+ + + + + | Result panel 13 | + + + + + + + + + | Sp Gr Ur | 2025-05-31 | | >=1.030 | (missing) | (missing) | | Strip | 02:20:08 | [facility] | | | | + + + + + + + + + | Result panel 14 | + + + + + + + + + | Hgb Ur Ql | 2025-05-31 | | NEGATIVE | (missing) | (missing) | | Strip | 02:20:08 | [facility] | | | | + + + + + + + + + | Result panel 15 | + + + + + +-------+ + + | pH Ur Strip | 2025-05-31 | | 5.5 | (missing) | (missing) | | | 02:20:08 | [facility] | | | | + + + +-------+ + + + + | Result panel 16 | + + + + + +------+ + + | Prot Ur | 2025-05-31 | | 30 | (missing) | (missing) | | Strip-mCnc | 02:20:08 | [facility] | [facility] | | | | + + + +------+ + + + + | Result panel 17 | + + + + + + + + + | | 2025-05-31 | | NORMAL | (missing) | (missing) | | Urobilinogen | 02:20:08 | [facility] | | | | | Ur | [facility] | Strip-mCnc | | [facility] | | | | + + + + + + + + + | Result panel 18 | + + + + + + + + + | Nitrite Ur | 2025-05-31 | | NEGATIVE | (missing) | (missing) | | Ql Strip | 02:20:08 | [facility] | | | [facility] | | | | + + + + + + + + + | Result panel 19 | + + + + + + + + + | Leukocyte | 2025-05-31 | | NEGATIVE | (missing) | (missing) | | esterase Ur | 02:20:08 | [facility] | | | | | Ql Strip | [facility] | | | | + + + + + + + + + | Result panel 20 | + + + + + +-------+ + + | RBC #/area | 2025-05-31 | | 0-1 | (missing) | (missing) | | UrnS HPF | 02:20:08 | [facility] | [facility] | | | | + + + +-------+ + + + + | Result panel 21 | + + + + + +-------+ + + | WBC #/area | 2025-05-31 | | 4-6 | (missing) | (missing) | | UrnS HPF | 02:20:08 | [facility] | | | | + + + +-------+ + + + + | Result panel 22 | + + + + + + + + + | Epi Cells | 2025-05-31 | | NONE SEEN | (missing) | (missing) | | #/area UrnS | 02:20:08 | [facility] | | | | | HPF | [facility] | | | | + + + + + + + + + | Result panel 23 | + + + + + + + + + | Crystals | 2025-05-31 | | NONE SEEN | (missing) | (missing) | | UrnS Micro | 02:20:08 | [facility] | | | | | [facility] | | | | + + + + + + + + + | Result panel 24 | + + + + + +--------+ + + | Bacteria | 2025-05-31 | | RARE | (missing) | (missing) | | #/area UrnS | 02:20:08 | [facility] | | | | | HPF | [facility] | | | | + + + +--------+ + + + + | Result panel 25 | + + + + + + + + + | Casts | 2025-05-31 | | HYALINE 3+ | (missing) | (missing) | | #/area UrnS | 02::08 | [facility] | | | | | LPF | [facility] | | | | + + + + + + + + + | Result panel 26 | + + + + + +------+ + + | Bacteria Ur | 2025-05-31 | | No | (missing) | (missing) | | Cult | 02:20:08 | [facility] | | | | | | [facility] | | | | + + + +------+ + + + + | Result panel 27 | + + + + + + + + + | Urn Spec | 2025-05-31 | | CLEAN CATCH | (missing) | (missing) | | Collect Meth | 02:20:08 | [facility] | | | | | Ur | [facility] | | | | + + + + + + + + + | Result panel 28 | + + + + + + + + + | | 2025-05-31 | | NEGATIVE | (missing) | (missing) | | Amphetamines | 02:20:08 | [facility] | | | | | Ur Ql | [facility] | | | | | Scn>500 | | [facility] | | | | ng/mL | | [facility] | | | | + + + + + + + + + | Result panel 29 | + + + + + + + + + | | 2025-05-31 | | NEGATIVE | (missing) | (missing) | | Barbiturates | 02:20:08 | [facility] | | | | | Ur Ql | [facility] - [facility] | | | | | Scn>300 | | [facility] | | | | | ng/mL | | [facility] | | | | + + + + + + + + + | Result panel 30 | + + + + + + + + + | Benzodiaz | 2025-05-31 | | POSITIVE | (missing) | (missing) | | Ur Ql | 02:20:08 | [facility] | | | | | Scn>300 | [facility] | | [facility] | ng/mL | | [facility] | | | | + + + + + + + + + | Result panel 31 | + + + + + + + + + | Cocaine Ur | 2025-05-31 | | NEGATIVE | (missing) | (missing) | | Ql Scn | 02:20:08 | [facility] | | | | | | [facility] | | | | + + + + + + + + + | Result panel 32 | + + + + + + + + + | | 2025-05-31 | | NEGATIVE | (missing) | (missing) | | Buprenorphin | 02::08 | [facility] | | | | | e Ur Ql Scn | [facility] | | | | + + + + + + + + + | Result panel 33 | + + + + + + + + + | oxyCODONE | 2025-05-31 | | NEGATIVE | (missing) | (missing) | | Ur Ql Scn | 02:20:08 | [facility] | | | | | | [facility] | | | | + + + + + + + + + | Result panel 34 | + + + + + + + + + | MDMA Ur Ql | 2025-05-31 | | NEGATIVE | (missing) | (missing) | | Scn | 02::08 | [facility] | | | | | | [facility] | | | | + + + + + + + + + | Result panel 35 | + + + + + + + + + | Methadone | 2025-05-31 | | NEGATIVE | (missing) | (missing) | | Ur Ql | 02:20:08 | [facility] | | | | | Scn>300 | [facility] | [facility] | ng/mL | | [facility] | | | | + + + + + + + + + | Result panel 36 | + + + + + + + + + | Opiates Ur | 2025-05-31 | | NEGATIVE | (missing) | (missing) | | Ql Scn | 02:20:08 | [facility] | | | | | | [facility] | | | | + + + + + + + + + | Result panel 37 | + + + + + + + + + | PCP Ur Ql | 2025-05-31 | | NEGATIVE | (missing) | (missing) | | Scn>25 ng/mL | 02:20:08 | [facility] | | | | | | [facility] | | | | + + + + + + + + + | Result panel 38 | + + + + + + + + + | THC Ur Ql | 2025-05-31 | | POSITIVE | (missing) | (missing) | | Scn>50 ng/mL | 02:20:08 | [facility] | | | [facility] | | | | + + + + + + + + + | Result panel 39 | + + + + + + + + + | fentaNYL Ur | 2025-05-31 | | NEGATIVE | (missing) | (missing) | | Ql Scn | 02:20:08 | [facility] | | | | | | [facility] | | | | + + + + + + + + + | Result panel 40 | + + + + + +-------+ + + | Lactate | 2025-05-31 | | 2.1 | (missing) | (missing) | | SerPl-sCnc | 06:00:08 | [facility] | [facility] | | | | + + + +-------+ + + + + | Result panel 41 | + + + + + +--------+ + + | WBC # Bld | 2025-06-06 | | 3.86 | (missing) | (missing) | | Auto | 08:58:08 | [facility] | | [facility] | | | | + + + +--------+ + + + + | Result panel 42 | + + + + + +--------+ + + | Lymphocytes | 2025-06-06 | | 26.7 | (missing) | (missing) | | NFr Bld | 08:58:08 | [facility] | | | | | Auto | | [facility] | | | | + + + +--------+ + + + + | Result panel 43 | + + + + + +--------+ + + | Monocytes | 2025-06-06 | | 11.1 | (missing) | (missing) | | NFr Bld Auto | 08:58:08 | [facility] | | | [facility] | | | | + + + +--------+ + + + + | Result panel 44 | + + + + + +-------+ + + | Eosinophil | 2025-06-06 | | 1.0 | (missing) | (missing) | | NFr Bld Auto | 08:58:08 | [facility] | | [facility] | | | | + + + +-------+ + + + + | Result panel 45 | + + + + + +-------+ + + | Basophils | 2025-06-06 | | 0.8 | (missing) | (missing) | | NFr Bld Auto | 08:58:08 | [facility] | | | | | | [facility] | | | | + + + +-------+ + + + + | Result panel 46 | + + + + + +-------+---------+ + | Glucose | 2025-06-06 | | 102 | mg/dL | (missing) | | SerPl-mCnc | 08:58:08 | [facility] | | | | | | [facility] | | | | + + + +-------+---------+ + + + | Result panel 47 | + + + + + +-----+---------+ + | BUN | 2025-06-06 | | 8 | mg/dL | (missing) | | Romain[facility]ks | 08:58:08 | [facility] | | | | | | [facility] | | | | + + + +-----+---------+ + + + | Result panel 48 | + + + + + +--------+---------+ + | Creat | 2025-06-06 | | 0.83 | mg/dL | (missing) | | SerPzina-Aleks | 08:58:08 | [facility] | | | | | | [facility] | | | | + + + +--------+---------+ + + + | Result panel 49 | + + + + + +-------+ + + | eGFRcr | 2025-06-06 | | 111 | (missing) | (missing) | | SerPlBld | 08:58:08 | [facility] | | | | | CKD-EPI 2020 | [facility] | | | | + + + +-------+ + + + + | Result panel 50 | + + + + + +--------+ + + | BUN/Creat | 2025-06-06 | | 9.63 | (missing) | (missing) | | SerPl | 08:58:08 | [facility] | | | | | | [facility] | | | | + + + +--------+ + + + + | Result panel 51 | + + + + + +-------+ + + | Sodium | 2025-06-06 | | 139 | (missing) | (missing) | | SerPl-sCnc | 08:58:08 | [facility] | | | | | | [facility] | | | | + + + +-------+ + + + + | Result panel 52 | + + + + + +--------+ + + | RBC # Bld | 2025-06-06 | | 3.92 | (missing) | (missing) | | Auto | 08:58:08 | [facility] | | | | | | [facility] | | | | + + + +--------+ + + + + | Result panel 53 | + + + + + +-------+ + + | Potassium | 2025-06-06 | | 3.3 | (missing) | (missing) | | SerPl-sCnc | 08:58:08 | [facility] | | | | | | [facility] | | | | + + + +-------+ + + + + | Result panel 54 | + + + + + +------+ + + | Chloride | 2025-06-06 | | 95 | (missing) | (missing) | | Ser[facility] | 08:58:08 | [facility] | | | | | [facility] | | | | + + + +------+ + + + + | Result panel 55 | + + + + + +------+ + + | CO2 | 2025-06-06 | | 24 | (missing) | (missing) | | SerPl-sCnc | 08:58:08 | [facility] | | | | | [facility] | | | | + + + +------+ + + + + | Result panel 56 | + + + + + +--------+ + + | Anion Gap | 2025-06-06 | | 23.3 | (missing) | (missing) | | SerPl | 08:58:08 | [facility] | | | | | Calculated.4 | [facility]nc | | [facility] | | | | + + + +--------+ + + + + | Result panel 57 | + + + + + +-------+---------+ + | Calcium | 2025-06-06 | | 9.7 | mg/dL | (missing) | | [place] | 08:58:08 | [facility] | | | | | | [facility] | | | | + + + +-------+---------+ + + + | Result panel 58 | + + + + + +-------+---------+ + | Magnesium | 2025-06-06 | | 1.8 | mg/dL | (missing) | | [place] | 08:58:08 | [facility] | | | | | | [facility] | | | | + + + +-------+---------+ + + + | Result panel 59 | + + + + + +-------+ + + | Prot | 2025-06-06 | | 7.8 | (missing) | (missing) | | [facility] | 08:58:08 | [facility] | | | | | [facility] | | | | + + + +-------+ + + + + | Result panel 60 | + + + + + +-------+ + + | Albumin | 2025-06-06 | | 4.3 | (missing) | (missing) | | SerPl-Aleks | 08:58:08 | [facility] | | | | | [facility] | | | | + + + +-------+ + + + + | Result panel 61 | + + + + + +-------+ + + | Globulin | 2025-06-06 | | 3.5 | (missing) | (missing) | | Ser-mCnc | 08:58:08 | [facility] | | | | | | [facility] | | | | + + + +-------+ + + + + | Result panel 62 | + + + + + +--------+ + + | | 2025-06-06 | | 1.23 | (missing) | (missing) | | Albumin/Glob | 08:58:08 | [facility] | | | | | SerPl | [facility] | | | | + + + +--------+ + + + + | Result panel 63 | + + + + + +--------+ + + | Hgb | 2025-06-06 | | 13.3 | (missing) | (missing) | | [facility] | 08:58:08 | [facility] | [facility] | | | | + + + +--------+ + + + + | Result panel 64 | + + + + + +-------+---------+ + | Bilirub | 2025-06-06 | | 1.7 | mg/dL | (missing) | | SerPl-mCnc | 08:58:08 | [facility] | | | [facility] | | | | + + + +-------+---------+ + + + | Result panel 65 | + + + + + +-------+ + + | AST | 2025-06-06 | | 251 | (missing) | (missing) | | SerPl-cCnc | 08:58:08 | [facility] | | | | | [facility] | | | | + + + +-------+ + + + + | Result panel 66 | + + + + + +-------+ + + | ALT | 2025-06-06 | | 206 | (missing) | (missing) | | SerPl-cCn | 08:58:08 | [facility] | | | | | | [facility] | | | | + + + +-------+ + + + + | Result panel 67 | + + + + + +------+ + + | ALP | 2025-06-06 | | 65 | (missing) | (missing) | | SerPl-cCn | 08:58:08 | [facility] | | | | | [facility] | | | | + + + +------+ + + + + | Result panel 68 | + + + + + +--------+ + + | Troponin I | 2025-06-06 | | <4.0 | (missing) | (missing) | | SerPl | 08:58:08 | [facility] | | | | | HS-mCnc | [facility] | | | | + + + +--------+ + + + + | Result panel 69 | + + + + + +--------+ + + | Hct VFr.DF | 2025-06-06 | | 39.2 | (missing) | (missing) | | Bld Auto | 08:58:08 | [facility] | | | | | [facility] | | | | + + + +--------+ + + + + | Result panel 70 | + + + + + +---------+ + + | RBC Auto | 2025-06-06 | | 100.0 | (missing) | (missing) | | | 08:58:08 | [facility] | | | | + + + +---------+ + + + + | Result panel 71 | + + + + + +--------+ + + | MCH RBC Qn | 2025-06-06 | | 33.9 | (missing) | (missing) | | Auto | 08:58:08 | [facility] | | | | [facility] | | | | + + + +--------+ + + + + | Result panel 72 | + + + + + +--------+ + + | MCHC RBC | 2025-06-06 | | 33.9 | (missing) | (missing) | | Auto-EntMCnc | 08:58:08 | [facility] | | | | | | [facility] | | | | + + + +--------+ + + + + | Result panel 73 | + + + + + +-------+ + + | Platelet # | 2025-06-06 | | 198 | (missing) | (missing) | | Bld Auto | 08:58:08 | [facility] | | | | | [facility] | | | | + + + +-------+ + + + + | Result panel 74 | + + + + + +--------+ + + | Neutrophils | 2025-06-06 | | 60.1 | (missing) | (missing) | | NFr Bld | 08:58:08 | [facility] | | | | | Auto | | [facility] | | | | + + + +--------+ + + + + | Result panel 75 | + + + + + + + + + | FLUAV Ag | 2025-06-06 | | NEGATIVE | (missing) | (missing) | | Upper resp | 20:28:08 | [facility] | | | | | Ql IA.rapid | [facility] | | | | + + + + + + + + + | Result panel 76 | + + + + + + + + + | FLUBV Ag | 2025-06-06 | | NEGATIVE | (missing) | (missing) | | Upper resp | 20:28:08 | [facility] | | | | | Ql IA.rapid | [facility] | | | | + + + + + + + + + | Result panel 77 | + + + + + + + + + | | 2025-06-06 | | NEGATIVE | (missing) | (missing) | | SARS-CoV+RAYRAY | 20:28:08 | [facility] | | | | | S-CoV-2 Ag | [facility] | Resp Ql | | [facility] | | | | IA.rapid | | [facility] | | | | + + + + + + + + + | Result panel 78 | + + + + + + + + + | Annotation | 2025-06-06 | | SEE BELOW | (missing) | (missing) | | comment Imp | 20:28:08 | [facility] | | | | | | [facility] | | | | + + + + + + + Social History +--------+ + + | date | description | facility | +--------+ + + Vital Signs + + + +---------+ | date | measurement | value | units | + + + +---------+ | 2025-05-30 00:00 | BMI | 19.2 | kg/m2 | + + + +---------+ | 2025-05-30 00:00 | height_metric | 187.96 | cm | + + + +---------+ | 2025-05-30 00:00 | height_standard | 74 | in | + + + +---------+ | 2025-05-30 00:00 | weight_metric | 67.999 | kg | + + + +---------+ | 2025-05-30 00:00 | weight_standard | 149.912 | lb | + + + +---------+ | 2025-05-31 00:00 | BP_diastolic | 51 | mmHg | + + + +---------+ | 2025-05-31 00:00 | BP_systolic | 102 | mmHg | + + + +---------+ | 2025-05-31 00:00 | heart_rate | 97 | /min | + + + +---------+ | 2025-05-31 00:00 | o2_saturation | 97 | % | + + + +---------+ | 2025-05-31 00:00 | respiration_rate | 16 | /min | + + + +---------+ | 2025-05-31 00:00 | | 98.5 | F | | | temperature_standar | | | | | d | | | + + + +---------+ | 2025-06-06 00:00 | BMI | 19.5 | kg/m2 | + + + +---------+ | 2025-06-06 00:00 | BP_diastolic | 64 | mmHg | + + + +---------+ | 2025-06-06 00:00 | BP_diastolic | 84 | mmHg | + + + +---------+ | 2025-06-06 00:00 | BP_systolic | 116 | mmHg | + + + +---------+ | 2025-06-06 00:00 | BP_systolic | 127 | mmHg | + + + +---------+ | 2025-06-06 00:00 | heart_rate | 80 | /min | + + + +---------+ | 2025-06-06 00:00 | heart_rate | 82 | /min | + + + +---------+ | 2025-06-06 00:00 | height_metric | 187.96 | cm | + + + +---------+ | 2025-06-06 00:00 | height_standard | 74 | in | + + + +---------+ | 2025-06-06 00:00 | o2_saturation | 100 | % | + + + +---------+ | 2025-06-06 00:00 | o2_saturation | 96 | % | + + + +---------+ | 2025-06-06 00:00 | respiration_rate | 16 | /min | + + + +---------+ | 2025-06-06 00:00 | | 98 | F | | | temperature_standar | | | | | d | | | + + + +---------+ | 2025-06-06 00:00 | | 98.9 | F | | | temperature_standar | | | | | d | | | + + + +---------+ | 2025-06-06 00:00 | weight_metric | 69 | kg | + + + +---------+ | 2025-06-06 00:00 | weight_standard | 152.118 | lb | + + + +---------+"
[~2025-06-24 18:51] MED LIST changes: +AFRIN15 M1 NAS
--- OUTSIDE RECORDS SUMMARY | 2025-06-24 18:52 | XMS ---
PreManage Notification: SAJI MORALES Security Cellophane Press Operator Events No recent Security Events currently on file CRITERIA MET - 6 ED Visits in 6 Months - Group Notification - [facility] - 2 Visits in 30 Days CARE PROVIDERS -, [facility] Dentist: Ichthyology Teacher Current [place] PHONE: [phone] [facility]: Multi-Specialty Current FAMILY PHONE: Unknown Lila has no Care Guidelines for this patient. E.Cruz VISIT COUNT (12 MO.) [address] [place] [address] TOTAL 8 NOTE: Visits indicate total known visits. ED/UCC VISIT TRACKING (12 MO.) 06/24/2025 18:51 [facility] [place] TYPE: Emergency COMPLAINT: - SEIZURE 06/24/2025 05:43 [facility] [place] TYPE: Emergency COMPLAINT: - NOSE BLEED 06/06/2025 19:20 [facility] [place] TYPE: Emergency COMPLAINT: - DIFFICULTY BREATHING DIAGNOSES: - Acute upper respiratory infection, unspecified - Allergic urticaria - Cough, unspecified - Gastro-esophageal reflux disease without esophagitis - Nicotine dependence, unspecified, uncomplicated 06/06/2025 08:[address] [facility] [facility] [place] TYPE: Emergency COMPLAINT: - CHEST PAIN DIAGNOSES: - Alcoholic gastritis without bleeding - Gastro-esophageal reflux disease without esophagitis - Nausea with vomiting, unspecified - Nicotine dependence, unspecified, uncomplicated - Other nursing home (current) drug therapy 05/30/2025 22:[address] [facility] [place] TYPE: Emergency COMPLAINT: - DIFFICULTY BREATHING DIAGNOSES: - Dehydration - Nicotine dependence, unspecified, uncomplicated - Other acidosis - Pleurodynia 05/06/2025 11:[address] [facility] [place] TYPE: Emergency COMPLAINT: - VOMITING DIAGNOSES: - Alcohol dependence with withdrawal, unspecified - Alcoholic gastritis without bleeding - Gastro-esophageal reflux disease without esophagitis - Nausea with vomiting, unspecified - Nicotine dependence, unspecified, uncomplicated - Other moth exterminator (current) drug therapy 03/22/2025 16:54 [facility] [place] TYPE: Emergency COMPLAINT: - VOMITING DIAGNOSES: - Alcohol use, unspecified, uncomplicated - Gastro-esophageal reflux disease without esophagitis - Nausea with vomiting, unspecified - Nicotine dependence, unspecified, uncomplicated - Other moth exterminator (current) drug therapy 10/31/2024 14:39 [facility] [place] TYPE: Emergency COMPLAINT: - SEIZURE LIKE FEELING INPATIENT VISIT TRACKING (12 MO.) No inpatient visits to display in this time frame [email or web address]
[2025-06-24 19:17] LABS: BASOPHILS 0.6 % (0.2-1.2); EOSINOPHILS 1.3 % (0.8-7.0); LYMPHOCYTES 21.4 % (21.8-53.1); MCH 33.9 PG (25.7-32.2); MCHC 34.0 g/dL (32.3-36.5); MCV 99.7 fL (79.0-92.2); MONOCYTES 5.1 % (5.3-12.2); NEUTROPHILS 71.3 % (34.0-67.9); RBC 3.30 M/uL (4.63-6.08)
[2025-06-24 19:40] LABS: ALCOHOL, MEDICAL <3 ng/dL (<3); ALT (SGPT) 239 U/L (14-59); AST (SGOT) 319 U/L (15-37); GLOMERULAR FILTRATION RATE,EST 91 mL/min (>60); PROTEIN, TOTAL 7.2 g/dL (6.4-8.2); UREA NITROGEN 6 mg/dL (7-18)
[2025-06-24 22:11] LABS: BLOOD/HGB, URINE NEGATIVE (Negative); KETONE, URINE SMALL (Negative); LEUK ESTERASE, URINE NEGATIVE (negative); NITRITE, URINE NEGATIVE (negative)
[2025-06-24 22:17] LABS: EPITHELIAL CELLS, URINE SQUAMOUS 1+ /lpf (0-1+)
[2025-06-24 22:18] LABS: BACTERIA, URINE RARE /hpf (negative); CASTS, URINE NONE SEEN \\lpf; CRYSTALS, URINE NONE SEEN (0-1+); REFLEX CULTURE, URINE No (No)
[2025-06-24 22:31] LABS: AMPHETAMINES, URINE NEGATIVE (NEGATIVE); BARBITURATES, URINE NEGATIVE (NEGATIVE); BENZODIAZEPINE, URINE NEGATIVE (NEGATIVE); CANNABINOID, URINE POSITIVE (NEGATIVE); COCAINE, URINE NEGATIVE (NEGATIVE); ECSTASY, URINE NEGATIVE (NEGATIVE); FENTANYL, URINE NEGATIVE (NEGATIVE); METHADONE, URINE NEGATIVE (NEGATIVE); OPIATES, URINE NEGATIVE (NEGATIVE); OXYCODONE, URINE NEGATIVE (NEGATIVE); PHENCYCLIDINE, URINE NEGATIVE (NEGATIVE)
[2025-06-24] MEDS ORDERED: MAGNESIUM SULFATE 2 GM/50 ML BAG IV ONE (22:45)
[2025-06-24] MEDS ORDERED: KEPPRA500 MG PO (22:47)
[2025-06-24 23:54] VITALS: BP 122/77
== END 2025-06-24 23:54 | disposition home or self-care (01) ==
LOC: ED 18:51
PROVIDERS: Emergency Medicine
DX: E83.42 Hypomagnesemia (principal); K21.9 Gastro-esophageal reflux disease without esophagitis; F17.200 Nicotine dependence, unspecified, uncomplicated; Z79.899 Other long term (current) drug therapy
CPT/HCPCS: 36415; 80053; 80307; 81001; 83735; 85025; 96374; 96375; 99284-25; G0480; J1953; J3475